=== PATIENT | female | born 1960 | race Hispanic/Latino ===

== ENCOUNTER 2018-02-04 10:20 | Emergency (ER) | payer OTHER ==
[2018-02-04 10:32] VITALS: BMI 33.0
[2018-02-04 10:33] VITALS: PULSE 80; O2SAT 98
[2018-02-04 10:37] VITALS: BP 165/86; RESP 18; TEMP 97.7
--- NOTE | 2018-02-04 11:04 | ED PDOC ---
HPI: Allergic Reaction Time Seen by Provider: 02/04/18 10:37 Chief Complaint (Nursing): Allergic Reaction History Per: Patient (this is a 57 yo lady who developed hives acutely after she took her usual dose of Methimazole this morning. Patient spoke to her tub attendant, Dr. Tamayo in [place], and was instructed to take Xyzal, Pepcid and Benadryl. She was told to go the ER to be checked. Patient denies throat swelling, cough or shortness of breath. She also denies fevers or chills , or nausea or vomiting.) Past Medical History Reviewed: Historical Data, Nursing Documentation, Vital Signs Vital Signs: Last Vital Signs Temp 97.7 F 02/04/18 10:32 Pulse 80 02/04/18 10:32 Resp 18 02/04/18 10:32 BP 165/86 H 02/04/18 10:32 Pulse Ox 98 02/04/18 10:35 - Medical History PMH: Hyperthyroidism - Family History Family History: States: No Known Family Hx - Living Arrangements Living Arrangements: With Family - Social History Current smoker - smoking cessation education provided: No - Allergies Allergies/Adverse Reactions: Allergies Allergy/AdvReac Type Severity Reaction Status Date / Time No Known Allergies Allergy Verified 02/04/18 10:35 Review of Systems ROS Statement: Except As Marked, All Systems Reviewed And Found Negative Constitutional: Negative for: Fever, Chills ENT: Positive for: Mouth Swelling (mild of the upper lip). Negative for: Throat Pain Respiratory: Negative for: Cough, Shortness of Breath Gastrointestinal: Negative for: Nausea, Vomiting Skin: Positive for: Rash Physical Exam - Reviewed Nursing Documentation Reviewed: Yes Vital Signs Reviewed: Yes - Physical Exam Appears: Positive for: Well, Non-toxic, No Acute Distress Head Exam: Positive for: ATRAUMATIC, NORMAL INSPECTION, NORMOCEPHALIC Skin: Positive for: Normal Color, Warm, Rash (diffusely scattered urticarial lesions. ) Eye Exam: Positive for: EOMI, Normal appearance, PERRL ENT: Positive for: Normal ENT Inspection, Pharynx Is. Negative for: Tonsillar Swelling Neck: Positive for: Normal, Painless ROM Cardiovascular/Chest: Positive for: Regular Rate, Rhythm Respiratory: Positive for: CNT, Normal Breath Sounds Gastrointestinal/Abdominal: Positive for: Normal Exam, Soft Back: Positive for: Normal Inspection Extremity: Positive for: Normal ROM Neurologic/Psych: Positive for: Alert, Oriented - ECG O2 Sat by Pulse Oximetry: 98 Disposition - Clinical Impression Clinical Impression: Acute urticaria - Patient ED Disposition Is Patient to be Admitted: No Doctor Will See Patient In The: Office Counseled Patient/Family Regarding: Diagnosis, Need For Followup - Disposition Referrals: Glen Tamayo MD [Medical Doctor] - [facility] [place] [Outside] Disposition Time: 11:06 Condition: STABLE Additional Instructions: Continue with pepcid two times daily and Benadryl 50mg every 4-6 hours as needed for itching. Return to the ER if rash worsens and if there is throat swelling and difficulty breathing. Instructions: Hives Forms: [employer] [facility] ([employer]) - POA Present On Arrival: None
== END 2018-02-04 11:21 | disposition home or self-care (01) ==
LOC: H.ER 10:20
DX: L50.0 Allergic urticaria (principal); E05.90 Thyrotoxicosis, unspecified without thyrotoxic crisis or storm

== ENCOUNTER 2018-10-12 20:16 | Emergency (ER) | payer OTHER ==
[2018-10-12 20:16] VITALS: BMI 33.0
[2018-10-12 20:38] VITALS: BP 168/86; PULSE 92; RESP 16; TEMP 98.4; O2SAT 99
[2018-10-12] MEDS ORDERED: Tdap Vaccine 0.5 ml Vial (10-64 yrs) IM ONE ×2 (20:44→20:53)
--- NOTE | 2018-10-12 21:07 | ED PDOC ---
HPI: Head Injury Time Seen by Provider: 10/12/18 20:38 Chief Complaint (Nursing): Abnormal Skin Integrity Chief Complaint (Provider): Head laceration History Per: Patient History/Exam Limitations: no limitations Onset/Duration Of Symptoms: Mins (20 minutes ago) Additional Complaint(s): 58 year old female presents to the ED for an evaluation of head laceration. Patient states, earlier today, she tripped and fell to the ground. Patient injured her head and there is a laceration on the left side of her head. Otherwise, patient denies loss of consciousness, nausea, vomiting, neck pain or anticoagulant use. PMD: unknown provider Past Medical History Reviewed: Historical Data, Nursing Documentation, Vital Signs Vital Signs: Last Vital Signs Temp 98.4 F 10/12/18 20:29 Pulse 92 H 10/12/18 20:29 Resp 16 10/12/18 20:29 BP 168/86 H 10/12/18 20:29 Pulse Ox 99 10/12/18 20:29 - Medical History PMH: Hyperthyroidism - Family History Family History: States: Unknown Family Hx - Social History Current smoker - smoking cessation education provided: No Alcohol: None Drugs: Denies - Allergies Allergies/Adverse Reactions: Allergies Allergy/AdvReac Type Severity Reaction Status Date / Time Sulfa (Sulfonamide Allergy RASH Verified 10/12/18 20:28 Antibiotics) Review of Systems ROS Statement: Except As Marked, All Systems Reviewed And Found Negative Gastrointestinal: Negative for: Nausea, Vomiting Musculoskeletal: Negative for: Neck Pain Neurological: Positive for: Other (head laceration) Physical Exam - Reviewed Nursing Documentation Reviewed: Yes Vital Signs Reviewed: Yes - Physical Exam Appears: Positive for: No Acute Distress Head Exam: Negative for: NORMAL INSPECTION (2cm S-shaped laceration on left temporal area without active bleeding) Eye Exam: Positive for: Normal appearance, EOMI, PERRL ENT: Positive for: Normal ENT Inspection Neck: Positive for: Normal, Painless ROM, Supple. Negative for: Decreased ROM Neurologic/Psych: Positive for: Alert, Oriented (x3), Gait (steady, unassisted ) - ECG O2 Sat by Pulse Oximetry: 99 (RA) Pulse Ox Interpretation: Normal Medical Decision Making Medical Decision Making: Time: 2044 Initial Plan: Head w/o contrast CT Tetanus 0.5ml IM Tylenol 975mg Reevaluation Patient requested plastic surgery evaluation [address] Moncada, plastic surgeon. 2146 EXAM: CT Head without Intravenous Contrast. CLINICAL HISTORY: Trauma TECHNIQUE: Axial computed tomography images of the head/brain without intravenous contrast. 766.37 mGy-cm COMPARISON: None provided. FINDINGS: BRAIN No acute intraparenchymal hemorrhage. No mass lesion. No CT evidence for acute territorial infarct. No midline shift or extra-axial collections. VENTRICLES: No hydrocephalus. ORBITS: The orbits are unremarkable. SINUSES AND MASTOIDS: The paranasal sinuses and mastoid air cells are clear. BONES: No fracture. SOFT TISSUES: Several bilateral parietal scalp sebaceous cysts are noted. IMPRESSION: No acute intracranial abnormality. Dr. Arshad performed laceration repair in ED and arranged f/u in his office in 1 week. ----- Scribe Attestation: Documented by Erin Costa, acting as a scribe for Juan Rodgers PA-C Provider Scribe Attestation: All medical record entries made by the Scribe were at my direction and persona lly dictated by me. I have reviewed the chart and agree that the record accurately reflects my personal performance of the history, physical exam, medical decision making, and the department course for this patient. I have also personally directed, reviewed, and agree with the discharge instructions and disposition. Disposition - Clinical Impression Clinical Impression: Head injury, Laceration of facial nerve - Patient ED Disposition Is Patient to be Admitted: No - Disposition Referrals: Flores Arshad MD [Medical Doctor] - Disposition: Routine/Home Disposition Time: 21:59 Condition: STABLE Additional Instructions: FOLLOW UP WITH DR. ARSHAD IN 1 WEEK FOR FURTHER EVALUATION RETURN TO ED IMMEDIATELY IF SYMPTOMS WORSEN HAYDEE SO, thank you for letting us take care of you today. Your provider was Laila Saxena MD and you were treated for HEAD INJURY. The emergency medical care you received today was directed at your acute symptoms. If you were prescribed any medication, please fill it and take as directed. It may take several days for your symptoms to resolve. Return to the Emergency Department if your symptoms worsen, do not improve, or if you have any other problems. Please contact your doctor or call one of the physicians/clinics you have been referred to that are listed on the Patient Visit Information form that is inc luded in your discharge packet. Bring any paperwork you were given at discharge with you along with any medications you are taking to your follow up visit. Our treatment cannot replace ongoing medical care by a primary care provider outside of the emergency department. Thank you for allowing the [facility] team to be part of your care today. If you had an X-Ray or CT scan: A Radiologist will review the ED reading if any change in treatment is needed we will contact you. If you had a blood, urine, or wound culture: It will take several days for the results, if any change in treatment is needed we will contact you. If you had an STI test: It will take 48 hours for the results. Please call after 1 week if you have not heard back. Instructions: Laceration Repair With Stitches (DC), Minor Head Injury (DC) Forms: [employer] (French)
--- NOTE | 2018-10-13 08:44 | CT ---
Date of service: 10/12/2018 PROCEDURE: CT HEAD WITHOUT CONTRAST. HISTORY: trauma COMPARISON: None available. TECHNIQUE: Axial computed tomography images were obtained through the head/brain without intravenous contrast. Radiation dose: Total exam DLP = 766.37 mGy-cm. This CT exam was performed using one or more of the following dose reduction techniques: Automated exposure control, adjustment of the mA and/or kV according to patient size, and/or use of iterative reconstruction technique. FINDINGS: HEMORRHAGE: No intracranial hemorrhage. BRAIN: No mass effect or edema. No atrophy or chronic microvascular ischemic changes. VENTRICLES: Unremarkable. No hydrocephalus. CALVARIUM: No fracture. Probable calcified sebaceous cyst high right frontal. Several left frontoparietal convexity sub a shows cysts are noted. PARANASAL SINUSES: Unremarkable as visualized. No significant inflammatory changes. MASTOID AIR CELLS: Unremarkable as visualized. No inflammatory changes. OTHER FINDINGS: None. IMPRESSION: No intracranial mass, hemorrhage or evidence of acute infarct. The preliminary findings for this examination were reported by [facility] at 9:47 p.m. on 10/12/2018. There is concurrence of this report with the preliminary findings.
== END 2018-10-12 22:11 | disposition home or self-care (01) ==
LOC: H.ER 20:16
DX: S04.50XA Injury of facial nerve, unspecified side, initial encounter (principal); S09.90XA Unspecified injury of head, initial encounter; W01.0XXA Fall on same level from slipping, tripping and stumbling without subsequent striking against object, initial encounter; Y92.89 Other specified places as the place of occurrence of the external cause; E05.90 Thyrotoxicosis, unspecified without thyrotoxic crisis or storm; Z88.2 Allergy status to sulfonamides